=== PATIENT | male | born 1980 | race Caucasian/White ===

== ENCOUNTER 2022-11-17 00:09 | Emergency (ER) | payer BC, SELFPAY ==
--- NOTE | ~2022-11-17 | XR_ITS ---
Portable chest x-ray Comparison: None Clinical History: Chest pain Findings: Lungs are clear, without focal consolidation or pleural effusion. Cardiomediastinal silho uette is unremarkable. Bones and soft tissues are unremarkable. Impression: Clear lungs. Reviewed, dictated and finalized at location M. Impression: Clear lungs.
--- NOTE | 2022-11-17 00:10 | ECG_ITS ---
Measurements Intervals [place] Rate: 108 P: 65 NC: 164 QRS: 21 QRSD: 102 T: 30 QT: 310 QTc: 417 Interpretive Statements SINUS TACHYCARDIA POSSIBLE LEFT ATRIAL ENLARGEMENT INCOMPLETE RIGHT BUNDLE BRANCH BLOCK MINIMAL Q WAVES- INFERIOR LEADS BORDERLINE ST ABNORMALITY- ANTERIOR LEADS ABNORMAL ECG NO PREVIOUS ECG AVAILABLE FOR COMPARISON Electronically Signed On 11-17-2022 6:37:40 CDT by Tha Carrion D.O.
[2022-11-17 00:29] VITALS: BP 79/45; PULSE 106; RESP 16; TEMP 36.3; O2SAT 100
[2022-11-17] MEDS: ASPIRIN 81 MG CHEWABLE TABLET 324 MG PO (00:30)
[2022-11-17 00:32] VITALS: BP 142/77; PULSE 101; RESP 20
[2022-11-17 00:37] LABS: Basophils Percent Auto 0.1 % (0.2-1.2); Eosinophils Absolute Auto 0.1 K/mm3 (0-0.3); Eosinophils Percent Auto 0.5 % (0-4.4); Hematocrit 41.5 % (42.0-52.0); Hemoglobin 13.8 g/dL (14.0-18.0); Immature Granulocyte Absolute 0.04 K/mm3 (0.00-0.031); Immature Granulocyte Percent A 0.4 % (0-0.5); Lymphocytes Absolute Auto 2.65 K/mm3 (0.9-3.2); Lymphocytes Percent Auto 26.3 % (18.3-44.2); Mean Corpuscular HGB Conc 33.3 g/dl (32-36); Mean Corpuscular Hemoglobin 30.2 pg (26-34); Mean Corpuscular Volume 90.8 fl (80-100); Mean Platelet Volume 10.9 fl (7.4-10.4); Monocytes Absolute Auto 1.1 K/mm3 (0.1-0.6); Monocytes Percent Auto 10.4 % (2.6-8.5); Neutrophils Absolute Auto 6.3 K/mm3 (1.3-6.7); Neutrophils Percent Auto 62.3 % (45.5-73.1); Platelet Count Result 234 k/mm3 (150-375); Red Blood Count 4.57 M/mm3 (4.6-6.20); Red Cell Distribution Width 12.4 % (11.5-14.5); White Blood Count 10.1 K/mm3 (4.5-10.0)
--- NOTE | 2022-11-17 00:41 | PC.NURSE ---
Pt reported to this RN he ate an edible before bed to ease his anxiety regarding his chest pain, pt states his symptoms started when he woke up.
[2022-11-17 00:48] LABS: Prothrombin Time 13.2 Seconds (11.1-14.7)
[2022-11-17 00:49] LABS: Anion Gap 8 mmol/L (8-16); Blood Urea Nitrogen 20 mg/dL (9-20); Carbon Dioxide 28 mmol/L (22-30); Chloride 104 mmol/L (98-107); Partial Thromboplastin Time 28.2 SECONDS (22.3-36.8); Potassium 3.5 mmol/L (3.4-5.0); Sodium 140 mmol/L (137-145)
[2022-11-17 00:50] LABS: Alanine Aminotransferase 23 U/L (6-50); Albumin Level 4.2 g/dL (3.5-5.1); Alkaline Phosphatase 54 U/L (38-126); Aspartate Amino Transferase 21 U/L (17-59); Bilirubin,Total 0.4 mg/dL (0.2-1.3); Calcium 9.3 mg/dL (8.4-10.2); Estimated CRCL calculation 125 ml/min; Estimated Glomerular Filt Rate > 60; Glucose 97 mg/dL (65-110); Lipase 93 U/L (23-300)
[2022-11-17 01:01] LABS: Troponin I < 0.012 ng/mL (0.000-0.034)
--- NOTE | 2022-11-17 02:19 | ED.GENADULT ---
HPI - General Adult General Chief complaint: Chest Pain Stated complaint: chest pain since last night Time Seen by Provider: 11/17/22 00:58 History of Present Illness HPI narrative: Patient reported gentleman presents to the emergency room with chief complaint of chest discomfort. Patient reports that yesterday started having an uncomfortable feeling in the left side of his chest patient reports it is worse with movement and improved with rest. The patient states that it is worse particular whenever he turns to the left side. Patient reports that he has no prior history of cardiac disease has had a stress test before in the past and patient states that this evening he took a THC gummy and then laid down and felt very strange afterwards the patient states that he usually does not have that whenever he is taken these for the past relax patient states whenever he arrived in the emergency department he felt lightheaded and he did have a low blood pressure at that time patient reports he is currently feeling much better Related Data Home Medications Medication Instructions Recorded Confirmed Saccharomyces boulardii 250 mg 250 mg PO BID 04/07/21 11/14/22 capsule (Daily Probiotic (S. boulardii)) loratadine 10 mg tablet 10 mg PO DAILY 04/07/21 11/14/22 multivitamin (Daily Multi-Vitamin 1 tablet PO DAILY 04/07/21 11/14/22 tablet) Allergies Allergy/AdvReac Type Severity Reaction Status Date / Time No Known Allergies Allergy Verified 11/17/22 00:10 Review of Systems Review of Systems: A 10 system review of systems was completed on the patient and is negative except for what is stated in the HPI. Nursing and ancillary documentation was reviewed. [facility] Past Medical History Medical History Allergies Hernia 2009 Skin cancer June 2020 Surgical History Surgical History H/O vasectomy 2009 Family History Family History Father Diabetes mellitus Non-Hodgkin lymphoma Mother Breast cancer Sibling Alcoholism Grandparent Breast cancer Heart disease Diabetes mellitus Social History Social History Smoking status: Never smoker Alcohol intake: current Drinks per week: 1 Lack of Transportation: No Lack of Food: Never True Current Housing: I Have Housing Concerned About Future Housing: No Difficulty Paying Gas/Electric Bills: No Difficulty Paying for Meds: No Currently Unemployed: No Education: Bachelor's Degree Difficulty w/ Childcare or Family Care: No Exam Narrative: GENERAL: Well-appearing, well-nourished, and in no acute distress. HEAD: Normocephalic, atraumatic. EYES: PERRLA and EOMI. ENT: Nares clear, no rhinorrhea or epistaxis. Mucous membranes moist. NECK: Supple. CHEST: Clear to auscultation. No respiratory distress. HEART: Regular rate and rhythm. No murmur heard. Normal peripheral pulses. ABDOMEN: Soft, nontender, nondistended, normal active bowel sounds. EXTREMITIES: Normal range of motion. No edema. SKIN: Warm, dry, no rash. NEURO: No focal deficits. Alert and oriented x3. PSYCH: Normal mood and affect. Course Vital Signs Vital signs: Vital Signs Temperature 36.3 C L 11/17/22 00:29 Pulse Rate 106 H 11/17/22 00:29 Respiratory Rate 16 11/17/22 00:29 Blood Pressure 79/45 L 11/17/22 00:29 Pulse Oximetry 100 11/17/22 00:29 Oxygen Delivery Room Air 11/17/22 00:29 Temperature 36.3 C L 11/17/22 00:29 Pulse Rate 101 H 11/17/22 00:32 Respiratory Rate 20 11/17/22 00:32 Blood Pressure 142/77 H 11/17/22 00:32 Pulse Oximetry 100 11/17/22 00:29 Oxygen Delivery Room Air 11/17/22 00:29 Medical Decision Making MDM Narrative Medical decision making narrative: Thomas
[2022-11-17 03:39] VITALS: BP 135/67; PULSE 75; RESP 15; O2SAT 100
== END 2022-11-17 03:40 | disposition home or self-care (01) ==
PROVIDERS: Emergency Provider Emergency Medicine; PCP Internal Medicine
DX: R07.89 Other chest pain (principal); Z85.828 Personal history of other malignant neoplasm of skin; R00.0 Tachycardia, unspecified; I45.10 Unspecified right bundle-branch block; R94.31 Abnormal electrocardiogram [ECG] [EKG]
CPT/HCPCS: 36415; 71045; 80053; 83690; 84484; 85025; 85610; 85730; 93005; 99284; A9270

== ENCOUNTER 2023-08-22 00:08 | Day surgery (SDC) | payer BC, SELFPAY ==
[2023-08-09 14:22] VITALS: BMI 32.1
[2023-08-22 07:42] VITALS: BP 142/86; PULSE 83; RESP 18; TEMP 36.1; O2SAT 98
[2023-08-22] MEDS: LACTATED RINGERS 1,000 ML 150 ML IV CONT (07:46)
--- NOTE | 2023-08-22 08:42 | P.PNAN_ITS ---
Anes - Initial Pre Proc Eval Procedure: Operation Date: 08/22/23 09:00 Proposed Procedures p Screening Colonoscopy - Stefan Ann MD Date/Time: 08/22/23 08:42 Surgeon: Stefan Ann MD Pre Op Diagnosis: neoplsam screening Patient Data Age: 43 Gender: M Height: 1.8 m Weight: 104 kg Last Vital Signs Temp 36.1 C L 08/22/23 07:42 Pulse 83 08/22/23 07:42 Resp 18 08/22/23 07:42 BP 142/86 H 08/22/23 07:42 Pulse Ox 98 08/22/23 07:42 O2 Del Method Room Air 08/22/23 07:42 Allergies Allergy/AdvReac Type Severity Reaction Status Date / Time No Known Allergies Allergy Verified 08/22/23 07:40 Home Medications Medication Instructions Recorded Confirmed Type Saccharomyces boulardii 250 mg 250 mg PO BID 04/07/21 08/09/23 History capsule (Daily Probiotic (S. boulardii)) loratadine 10 mg tablet 10 mg PO DAILY 04/07/21 08/09/23 History multivitamin (Daily Multi-Vitamin 1 tablet PO DAILY 04/07/21 08/09/23 History tablet) lisinopril 10 mg tablet 10 mg PO DAILY #90 tabs 04/07/23 08/09/23 Rx Patient hx anesthesia problems: none Family hx anesthesia problems: none Results Review: All pre-operative results and documents have been reviewed as part of the pre- operative evaluation. [facility] Past Medical History Medical History Allergies Hernia 2010 Skin cancer June 2020 Surgical History Surgical History H/O vasectomy 2009 Family History Family History Father Diabetes mellitus Non-Hodgkin lymphoma Mother Breast cancer Sibling Alcoholism Grandparent Breast cancer Heart disease Diabetes mellitus Social History Social History Smoking status: Never smoker Alcohol intake: current Drinks per week: 1 Alcohol use details: DRINK Substance use: current Substance use type: does not use Lack of Transportation: No Lack of Food: Never True Current Housing: I Have Housing Concerned About Future Housing: No Difficulty Paying Gas/Electric Bills: No Difficulty Paying for Meds: No Currently Unemployed: No Education: Bachelor's Degree Difficulty w/ Childcare or Family Care: No Living arrangements: with family Spiritual care concerns: No Anes - Eval Final PreProcedure Day of Procedure 08/22/23 08:42 Patient weight: obese Heart: regular rate and rhythm Lungs: clear to auscultation Airway: Mallampati scale class II Neurological: alert and oriented Last oral intake: >/= 8 hours ASA classification: II Emergent: no Anesthetic plan: proceed Anesthesia type and monitoring: general GIVS and standard monitoring Results Review: All pre-operative results and documents have been reviewed as part of the pre-o perative evaluation. Informed Consent: The patient's anesthetic plan and its attendant risks and benefits were discussed with the patient/family/POA. Questions were solicited and answers provided to the satisfaction of the patient/family/POA.
--- NOTE | 2023-08-22 08:54 | PM.HPGS ---
History of Present Illness History of Present Illness Consent: Risks, benefits, and alternatives have been discussed and questions answered. Patient agrees to proceed with procedure. Chief complaint: neoplsam screening Narrative: Benjamin Cosby is a 43 year old male here for first screening colonoscopy Review of Systems Review of Systems: All systems reviewed & are unremarkable except as noted in HPI and below PMFSH Past Medical History Medical History Allergies Hernia 2009 Skin cancer June 2020 Surgical History Surgical History H/O vasectomy 2009 Family History Family History Father Diabetes mellitus Non-Hodgkin lymphoma Mother Breast cancer Sibling Alcoholism Grandparent Breast cancer Heart disease Diabetes mellitus Social History Social History Smoking status: Never smoker Alcohol intake: current Drinks per week: 1 Alcohol use details: DRINK Substance use: current Substance use type: does not use Lack of Transportation: No Lack of Food: Never True Current Housing: I Have Housing Concerned About Future Housing: No Difficulty Paying Gas/Electric Bills: No Difficulty Paying for Meds: No Currently Unemployed: No Education: Bachelor's Degree Difficulty w/ Childcare or Family Care: No Living arrangements: with family Spiritual care concerns: No Meds Home Medications and Allergies Home Medications Medication Instructions Recorded Confirmed Type Saccharomyces boulardii 250 mg 250 mg PO BID 04/07/21 08/09/23 History capsule (Daily Probiotic (S. boulardii)) loratadine 10 mg tablet 10 mg PO DAILY 04/07/21 08/09/23 History multivitamin (Daily Multi-Vitamin 1 tablet PO DAILY 04/07/21 08/09/23 History tablet) lisinopril 10 mg tablet 10 mg PO DAILY #90 tabs 04/07/23 08/09/23 Rx Allergies Allergy/AdvReac Type Severity Reaction Status Date / Time No Known Allergies Allergy Verified 08/22/23 07:40 Vital Signs Vital Signs - 24 hr 08/22/23 07:42 Temperature 97.0 F L Pulse Rate 83 Respiratory Rate 18 Blood Pressure 142/86 H Pulse Oximetry 98 Oxygen Delivery Room Air Exam Const: General: comfortable and no acute distress HENMT: Face/Nose/Sinus: Normal nares present Eyes: General: appearance normal, both eyes and all related structures Neck: Neck: no JVD Resp: Auscultation: clear to auscultation bilaterally Cardio: Rate: regular rate Rhythm: regular rhythm GI: Inspection: non-distended GI Palp: Yes Soft to palpation Skin: General skin exam: normal color Neuro: General: gait normal Speech: normal speech Extrem: General: normal to inspection Psych: Mental Status: mental status grossly normal Assessment and Plan Assessment and plan (1) Screening for colon cancer: Code(s): Z12.11 - Encounter for screening for malignant neoplasm of colon Status: Acute Assessment and Plan: colonoscopy
[2023-08-22 09:10] VITALS: BP 111/69; PULSE 78; RESP 18; O2SAT 98
[2023-08-22 09:20] VITALS: BP 103/64; PULSE 66; RESP 18; O2SAT 98
[2023-08-22 09:30] VITALS: BP 119/80; PULSE 81; RESP 18; O2SAT 98
== END 2023-08-22 09:33 | disposition home or self-care (01) ==
PROVIDERS: PCP Internal Medicine; Visit Provider Internal Medicine Gastroenterology
PROC: 0DJD8ZZ Inspection of Lower Intestinal Tract, Via Natural or Artificial Opening Endoscopic (ICD-10-PCS; CPT 45378; principal; 2023-08-22 09:00)
DX: Z12.11 Encounter for screening for malignant neoplasm of colon (principal); K64.8 Other hemorrhoids; E66.9 Obesity, unspecified; Z68.32 Body mass index [BMI] 32.0-32.9, adult
CPT/HCPCS: 45378; J2704; J7120